=== PATIENT | female | born 1960 | race Caucasian/White ===

== ENCOUNTER → 2022-05-26 14:18 | Outpatient (CLI) | payer OTHER, SELFPAY | PROVIDERS: Visit Provider Nurse Practitioner Family | DX: R30.0 Dysuria (principal) | CPT/HCPCS: 87086; 87210 ==

== ENCOUNTER 2022-09-09 10:08 | Emergency (ER) | payer OTHER, SELFPAY ==
[2022-09-09 10:17] VITALS: BP 137/62; PULSE 77; RESP 15; TEMP 36.6; O2SAT 99; BMI 30.9
[2022-09-09 11:32] LABS: Add Manual Diff / Slide Review NO; Basophils Absolute Auto 100 /uL (0-100); Basophils Percent Auto 0.6 % (0-2); Eosinophils Absolute Auto 0 /uL (0-450); Eosinophils Percent Auto 0.2 % (2-4); Hemoglobin 14.4 g/dL (12.0-16.0); Lymphocytes Absolute Auto 1400 /uL (1100-4500); Lymphocytes Percent Auto 10.6 % (25-40); Mean Corpuscular HGB Conc 34.4 % (30-36); Mean Corpuscular Hemoglobin 31.1 PG (26-34); Mean Corpuscular Volume 90.5 fL (80-100); Monocytes Absolute Auto 600 /uL (0-900); Monocytes Percent Auto 4.5 % (3-14); Neutrophils Absolute Auto 10900 /uL (1500-7000); Neutrophils Percent Auto 84.1 % (50-75); Platelet Count 204 X10^3/uL (150-400); Red Blood Cell Count 4.64 X10^6/uL (4.0-5.2); Red Cell Distribution Width 13.1 % (11.6-14.8); White Blood Cell Count 12.9 X10^3/uL (4.5-11.0)
[2022-09-09 11:56] LABS: Alanine Aminotransferase 20 IU/L (<35); Albumin 4.4 g/dL (3.5-5.0); Albumin Globulin Ratio 1.4 (1.0-2.8); Alkaline Phosphatase 64 U/L (38-126); Aspartate Aminotransferase 23 IU/L (14-36); BUN Creatinine Ratio 14.2 (6-22); Blood Urea Nitrogen 17 mg/dL (7-17); Calcium 8.7 mg/dL (8.4-10.2); Carbon Dioxide 29 mmol/L (22-32); Chloride 100 mmol/L (98-107); Estimated Glomerular Filt Rate 51 mL/min (>60); Globulin 3.1 g/dL (1.7-4.1); Glucose 104 mg/dL (80-110); HEMOLYSIS 20 (0-50); Lipase 41 U/L (23-300); Potassium 3.9 mmol/L (3.4-5.1); Sodium 136 mmol/L (137-145); Total Protein 7.5 g/dL (6.3-8.2)
--- NOTE | 2022-09-09 12:42 | DI.CT.S_ITS ---
PROCEDURE: CT ABDOMEN PELVIS WO CON INDICATIONS: RLQ pain, bilateral CVA ttp TECHNIQUE: Noncontrast 5 mm thick sections acquired from the diaphragms to the symphysis. 5 mm coronal and sagittal reformats were then performed. For radiation dose reduction, the following was used: automated exposure control, adjustment of mA and/or kV according to patient size. COMPARISON: None. FINDINGS: Image quality: Excellent. ABDOMEN: Lung bases: Lung bases are clear. Heart size is normal. Solid organs: Liver is normal in size. Gallbladder contains sludge, without evidence of infection. . Pancreas is normal in contours. Spleen is normal in size. No adrenal nodules. No radiopaque nephrolithiasis. Perceived right-sided urothelial wall thickening and periureteral fat stranding. Left renal cyst with benign attenuation. Peritoneum and bowel: Unenhanced bowel loops demonstrate normal wall thickness and caliber. No free fluid or air. Appendix is unremarkable. Colonic diverticulosis without evidence of diverticulitis. Nodes and vessels: No retroperitoneal or mesenteric adenopathy by size criteria. Aorta and inferior vena cava are normal in caliber. Miscellaneous: No ventral hernias. PELVIS: Genitourinary: Bladder wall thickness is normal. Miscellaneous: No inguinal hernias or adenopathy. Bones: No suspicious bony lesions. No vertebral body compression fractures. IMPRESSION: No nephrolithiasis. Perceived right-sided urothelial wall thickening and periureteral fat stranding, which may indicate an ascending infection. Correlate with urinalysis. Dictated by: Washington Almaraz M.D. on 09/09/2022 at 13:28 Approved by: Washington Almaraz M.D. on 09/09/2022 at 13:37
--- NOTE | 2022-09-09 12:47 | ED_ITS ---
HPI - Abdominal Pain <Fany Barr PA-C - Last Filed: 09/09/22 17:31> General Chief Complaint: Abdominal Pain Stated Complaint: stomach issues x2 Time Seen by Provider: 09/09/22 12:02 Source: patient Mode of arrival: Ambulatory History of Present Illness HPI narrative: 61-year-old female with past medical history diabetes, diverticulosis presents to the ED with 3 days of right lower quadrant pain. Patient states that she has been constipated over the last 2 weeks with very small bowel movements that she has a lot of trouble pushing out. Patient states that this is a change since she usually 10s to have more diarrhea than constipation. Patient saw a small amount of blood in her urine just wants 2 days ago, but that has resolved since then. Patient endorses a lot of dysuria, belching, diminished appetite. Patient denies fever, chills, chest pain, shortness of breath, nausea, vomiting, lightheadedness, dizziness, syncope. Related Data Previous Rx's Medication Instructions Recorded fluconazole 150 mg tablet 150 mg PO Q3D 2 doses #2 tabs 05/28/22 cefpodoxime 200 mg tablet 200 mg PO BID 10 days #20 tabs 09/09/22 Allergies Allergy/AdvReac Type Severity Reaction Status Date / Time codeine Allergy Mild Nausea Verified 09/09/22 10:22 fentanyl Allergy Mild Vomiting Verified 09/09/22 10:22 IV Contrast dye Allergy Uncoded 09/09/22 12:56 Review of Systems <Fany Barr PA-C - Last Filed: 09/09/22 17:31> Review of Systems ROS Unobtainable: All systems reviewed & are unremarkable except as noted in HPI and below Constitutional Constitutional: Denies chills, Denies fatigue, Denies fever(s), Denies frequent falls, Denies lethargy and Denies weakness Eyes Eyes: Denies change in vision, Denies eye discharge, Denies irritation and Denies loss of vision ENT Ears, Nose, Mouth, and Throat: Denies change in voice, Denies dizziness, Denies neck pain, Denies sore throat and Denies throat swelling Cardiovascular Cardiovascular: Denies chest pain, Denies irregular heart rhythm, Denies lightheadedness, Denies palpitations, Denies dyspnea, Denies dyspnea on exertion and Denies orthopnea Respiratory Respiratory: Denies cough, Denies dyspnea, Denies dyspnea on exertion and Denies wheezing Gastrointestinal Gastrointestinal: Reports abdominal pain, Reports belching, Denies change in bowel habits, Reports constipation, Denies diarrhea, Denies nausea and Denies vomiting Genitourinary Genitourinary: Denies hematuria, Reports dysuria, Reports dysuria, Denies flank pain, Denies urinary incontinence and Denies urinary urgency Musculoskeletal Musculoskeletal: Denies back pain, Denies muscle weakness, Denies neck pain, Denies numbness and Denies tingling Integumentary/Breasts Skin/Breast: Denies pruritus, Denies erythema, Denies rash and Denies wounds Neurologic Neurologic: Denies behavioral changes, Denies confusion, Denies dizziness, Denies frequent falls, Denies loss of vision, Denies numbness, Denies tingling and Denies weakness Psychiatric Psychiatric: Denies anxiety, Denies behavioral changes, Denies confusion, Denies depression, Denies homicidal ideation and Denies suicidal ideation Endocrine Endocrine: Denies fatigue, Denies flushing and Denies palpitations Hematologic/Lymphatic Hematologic/Lymphatic: Denies easy bruising Allergic/Immunologic Allergic/Immunologic: Denies urticaria, Denies throat swelling and Denies wheezing Patient History <Fany Barr PA-C - Last Filed: 09/09/22 17:31> Social History Smoking Status: Never smoker Smoking Status: Never smoker alcohol intake frequency: holidays/special occasions only Substance Use Type: does not use Exam <Fany Barr PA-C - Last Filed: 09/09/22 17:31> Narrative Exam Narrative: Const General:?cooperative, healthy appearing and comfortable [facility] Head:?normal to inspection Ears:?hearing grossly normal bilaterally Nose:?external nose normal Face and sinus:?normal facial exam and sinuses nontender Mouth:?oral mucosae normal Throat:?posterior oropharynx normal Eyes General:?appearance normal, both eyes and all related structures Neck Neck:?normal visual inspection and no lymphadenopathy noted Resp Effort & Inspection:?normal respiratory effort Auscultation:?clear to auscultation bilaterally Cardio Rate:?regular rate Rhythm:?regular rhythm GI Abdomen is soft, nondistended. Abdomen is tender to palpation in the right lower quadrant. There is bilateral CVA tenderness. Neuro General:?patient alert, patient awake and patient oriented x3 Initial Vital Signs Initial Vital Signs: Vital Signs Temperature 97.8 F 09/09/22 10:17 Pulse Rate 77 09/09/22 10:17 Respiratory Rate 15 09/09/22 10:17 Blood Pressure 137/62 09/09/22 10:17 Pulse Oximetry 99 09/09/22 10:17 Oxygen Delivery Method Room Air 09/09/22 10:17 <Nick Villa MD - Last Filed: 09/16/22 08:09> Initial Vital Signs Initial Vital Signs: Vital Signs Temperature 97.8 F 09/09/22 10:17 Pulse Rate 77 09/09/22 10:17 Respiratory Rate 15 09/09/22 10:17 Blood Pressure 137/62 09/09/22 10:17 Pulse Oximetry 99 09/09/22 10:17 Oxygen Delivery Method Room Air 09/09/22 10:17 Course <Fany Barr PA-C - Last Filed: 09/09/22 17:31> Orders Ordered: Discontinued Medications Sodium Chloride (Normal Saline 0.9%) 1,000 mls @ 1,000 mls/hr IV BOLUS ONE Stop: 09/09/22 13:44 Last Infusion: 09/09/22 13:59 Dose: 0 mls/hr Documented By: Admin: 09/09/22 13:00 Dose: 1,000 mls/hr Documented By: EDD Ketorolac Tromethamine (Ketorolac 30 Mg/Ml Vial) 15 mg IV NOW ONE Stop: 09/09/22 12:46 Last Admin: 09/09/22 13:00 Dose: 15 mg Documented By: EDD Ondansetron HCl (Ondansetron 4 Mg/2 Ml Inj) 4 mg IV NOW ONE Stop: 09/09/22 12:46 Last Admin: 09/09/22 13:00 Dose: 4 mg Documented By: EDD Vital Signs Vital signs: Vital Signs - 8 hr 09/09/22 10:17 09/09/22 15:13 Temperature 97.8 F Pulse Rate 77 87 Respiratory Rate 15 18 Blood Pressure 137/62 151/66 H Pulse Oximetry 99 94 Oxygen Delivery Method Room Air Room Air <Nick Villa MD - Last Filed: 09/16/22 08:09> Orders Ordered: Discontinued Medications Sodium Chloride (Normal Saline 0.9%) 1,000 mls @ 1,000 mls/hr IV BOLUS ONE Stop: 09/09/22 13:44 Last Infusion: 09/09/22 13:59 Dose: 0 mls/hr Documented By: Admin: 09/09/22 13:00 Dose: 1,000 mls/hr Documented By: EDD Ketorolac Tromethamine (Ketorolac 30 Mg/Ml Vial) 15 mg IV NOW ONE Stop: 09/09/22 12:46 Last Admin: 09/09/22 13:00 Dose: 15 mg Documented By: EDD Ondansetron HCl (Ondansetron 4 Mg/2 Ml Inj) 4 mg IV NOW ONE Stop: 09/09/22 12:46 Last Admin: 09/09/22 13:00 Dose: 4 mg Documented By: EDD Vital Signs Vital signs: Vital Signs - 8 hr 09/09/22 10:17 09/09/22 15:13 Temperature 97.8 F Pulse Rate 77 87 Respiratory Rate 15 18 Blood Pressure 137/62 151/66 H Pulse Oximetry 99 94 Oxygen Delivery Method Room Air Room Air MDM - Abdominal Pain <Fany Barr PA-C - Last Filed: 09/09/22 17:31> Lab Data 09/09/22 11:22 09/09/22 11:22 Labs: Lab Results 09/09/22 09/09/22 09/09/22 Range/Units 11:22 11:22 14:43 WBC 12.9 H (4.5-11.0) X10^3/uL RBC 4.64 (4.0-5.2) X10^6/uL Hgb 14.4 (12.0-16.0) g/dL Hct 42.0 (36-46) % MCV 90.5 (80-100) fL MCH 31.1 (26-34) PG MCHC 34.4 (30-36) % RDW 13.1 (11.6-14.8) % Plt Count 204 (150-400) X10^3/uL Neut % (Auto) 84.1 H (50-75) % Lymph % (Auto) 10.6 L (25-40) % [place] % (Auto) 4.5 (3-14) % Eos % (Auto) 0.2 L (2-4) % Baso % (Auto) 0.6 (0-2) % Neut # (Auto) 14617 H (4801-1139) /uL Lymph # (Auto) 1400 (8936-8481) /uL [place] # (Auto) 600 (0-900) /uL Eos # (Auto) 0 (0-450) /uL Baso # (Auto) 100 (0-100) /uL Sodium 136 L (137-145) mmol/L Potassium 3.9 (3.4-5.1) mmol/L Chloride 100 (98-107) mmol/L Carbon Dioxide 29 (22-32) mmol/L BUN 17 (7-17) mg/dL Creatinine 1.20 H (0.52-1.04) mg/dL Estimated GFR 51 L (>60) mL/min BUN/Creatinine Ratio 14.2 (6-22) Glucose 104 (80-110) mg/dL Calcium 8.7 (8.4-10.2) mg/dL Total Bilirubin 1.0 (0.2-1.3) mg/dL AST 23 (14-36) IU/L ALT 20 (<35) IU/L Alkaline Phosphatase 64 (38-126) U/L Total Protein 7.5 (6.3-8.2) g/dL Albumin 4.4 (3.5-5.0) g/dL Globulin 3.1 (1.7-4.1) g/dL Albumin/Globulin Ratio 1.4 (1.0-2.8) Lipase 41 (23-300) U/L Urine Color Yellow Urine Appearance Sl cloudy Urine pH 6.0 (4.5-8.0) Ur Specific [place] 1.015 (1.000-1.035) Urine Protein Trace H (Negative) Urine Glucose (UA) Negative (Negative) g/dL Urine Ketones Trace H (NEGATIVE) Urine Occult Blood 3+ H (Negative) Urine Nitrate Negative (Negative) Urine Bilirubin Negative (NEGATIVE) Urine Urobilinogen 0.2 (0.2) E.U./dL Ur Leukocyte Esterase 3+ H (NEGATIVE) Urine RBC 5-10/hpf H (0-5/HPF) Urine WBC 10-30/hpf H (0-5/HPF) Ur Squamous Epith Cells 1-5 /hpf (0-5/HPF) Amorphous Sediment 1+ Urine Bacteria Moderate (10-30) H (None) Urine Mucus 1+ H (Negative) Ur Culture Indicated? Specimen cultured Point of care testing: Urine Dip Bedside Urine Glucose Negative Bedside Urine Bilirubin - Negative Bedside Urine Ketone +/- 5 Urine Specific [place] 1.015 Bedside Urine Occult Blood +++ Bedside Urine pH 6.0 Bedside Urine Protein + 30 Bedside Urine Urobilinogen - Negative Bedside Urine Nitrite - Negative Bedside Urine Leukocytes ++ 125 Esterase MDM Narrative Medical decision making narrative: 61-year-old female with past medical history diabetes, diverticulosis presents to the ED with 3 days of right lower quadrant pain. Concern for appendicitis versus nephrolithiasis versus UTI versus pyelonephritis versus constipation versus diverticulitis versus other intra-abdominal pathology versus other. Will obtain labs, UA, CT abdomen pelvis. Patient endorses a contrast allergy from a prior CT where she broke out in a rash. Will trial CT abdomen pelvis without contrast to start with. Will give IV fluids, Zofran, Toradol for symptoms. Will reassess. UA and CT abdomen pelvis consistent with a ascending UTI. No other acute findings on workup. There is some stool burden in the CT, for which patient is recommended to take MiraLax daily for the next few weeks. Patient prescribed antibiotics for the UTI. Patient agrees to follow-up with PCP as soon as possible. ED return precautions were discussed with patient. Patient verbal ized understanding. Medical records reviewed: Yes <Nick Villa MD - Last Filed: 09/16/22 08:09> Lab Data Labs: Lab Results 09/09/22 09/09/22 09/09/22 Range/Units 11:22 11:22 14:43 WBC 12.9 H (4.5-11.0) X10^3/uL RBC 4.64 (4.0-5.2) X10^6/uL Hgb 14.4 (12.0-16.0) g/dL Hct 42.0 (36-46) % MCV 90.5 (80-100) fL MCH 31.1 (26-34) PG MCHC 34.4 (30-36) % RDW 13.1 (11.6-14.8) % Plt Count 204 (150-400) X10^3/uL Neut % (Auto) 84.1 H (50-75) % Lymph % (Auto) 10.6 L (25-40) % [place] % (Auto) 4.5 (3-14) % Eos % (Auto) 0.2 L (2-4) % Baso % (Auto) 0.6 (0-2) % Neut # (Auto) 64890 H (5423-8134) /uL Lymph # (Auto) 1400 (0461-8805) /uL [place] # (Auto) 600 (0-900) /uL Eos # (Auto) 0 (0-450) /uL Baso # (Auto) 100 (0-100) /uL Sodium 136 L (137-145) mmol/L Potassium 3.9 (3.4-5.1) mmol/L Chloride 100 (98-107) mmol/L Carbon Dioxide 29 (22-32) mmol/L BUN 17 (7-17) mg/dL Creatinine 1.20 H (0.52-1.04) mg/dL Estimated GFR 51 L (>60) mL/min BUN/Creatinine Ratio 14.2 (6-22) Glucose 104 (80-110) mg/dL Calcium 8.7 (8.4-10.2) mg/dL Total Bilirubin 1.0 (0.2-1.3) mg/dL AST 23 (14-36) IU/L ALT 20 (<35) IU/L Alkaline Phosphatase 64 (38-126) U/L Total Protein 7.5 (6.3-8.2) g/dL Albumin 4.4 (3.5-5.0) g/dL Globulin 3.1 (1.7-4.1) g/dL Albumin/Globulin Ratio 1.4 (1.0-2.8) Lipase 41 (23-300) U/L Urine Color Yellow Urine Appearance Sl cloudy Urine pH 6.0 (4.5-8.0) Ur Specific [place] 1.015 (1.000-1.035) Urine Protein Trace H (Negative) Urine Glucose (UA) Negative (Negative) g/dL Urine Ketones Trace H (NEGATIVE) Urine Occult Blood 3+ H (Negative) Urine Nitrate Negative (Negative) Urine Bilirubin Negative (NEGATIVE) Urine Urobilinogen 0.2 (0.2) E.U./dL Ur Leukocyte Esterase 3+ H (NEGATIVE) Urine RBC 5-10/hpf H (0-5/HPF) Urine WBC 10-30/hpf H (0-5/HPF) Ur Squamous Epith Cells 1-5 /hpf (0-5/HPF) Amorphous Sediment 1+ Urine Bacteria Moderate (10-30) H (None) Urine Mucus 1+ H (Negative) Ur Culture Indicated? Specimen cultured Point of care testing: Urine Dip Bedside Urine Glucose Negative Bedside Urine Bilirubin - Negative Bedside Urine Ketone +/- 5 Urine Specific [place] 1.015 Bedside Urine Occult Blood +++ Bedside Urine pH 6.0 Bedside Urine Protein + 30 Bedside Urine Urobilinogen - Negative Bedside Urine Nitrite - Negative Bedside Urine Leukocytes ++ 125 Esterase Discharge Plan Departure Patient Disposition: Home Clinical Impression: UTI (urinary tract infection) Instructions: DI for Urinary Tract Infection (UTI) Activity Restrictions/Additional Instructions: You were evaluated in the ED today for right-sided abdominal pain. Your urine and CT scan show a urinary tract infection for which you are being prescribed antibiotics. Please complete the full course of antibiotics. It also appears that you have some constipation, for which you can take [id number] magnesium citrate 300 mg once. After that, you may take MiraLax nightly for a good bowel regimen. Please follow-up with your PCP in 3-5 days. Return to the ED if you have fever, chills, persistent vomiting, chest pain, shortness of breath. Prescriptions: New cefpodoxime 200 mg tablet 200 mg PO BID 10 Days Qty: 20 0RF Rx Instructions: must administer with a meal/food No Action fluconazole 150 mg tablet 150 mg PO Q3D 0 Days Qty: 2 0RF Rx Instructions: One tablet today, next tablet in 3 days Referrals: Miscellaneous,[facility] [Primary Care Provider] - Stand Alone Forms: Patient Portal/API <Nick Villa MD - Last Filed: 09/16/22 08:09> Cosign ED Attending Jazzature Attestation: I was immediately available in the department for consultation. ?This documentation has been reviewed and I agree with assessment and plan. Supervised by Nick Villa MD
[2022-09-09] MEDS: ONDANSETRON 4 MG/2 ML INJ IV (13:00)
[2022-09-09] MEDS: SODIUM CHLORIDE 0.9% 1,000 ML 1000 ML IV (13:00)
[2022-09-09] MEDS: KETOROLAC 30 MG/ML VIAL 15 MG IV (13:00)
[2022-09-09 14:46] LABS: Appearance Urine UA SL CLOUDY; Bilirubin Urine UA NEGATIVE (NEGATIVE); Color Urine UA YELLOW; Glucose Urine UA NEGATIVE (Negative); Ketones Urine UA TRACE (NEGATIVE); Leukocyte Esterase Urine UA 3+ (NEGATIVE); Nitrite Urine UA NEGATIVE (Negative); Occult Blood Urine UA 3+ (Negative); Protein Urine UA TRACE (Negative); Specific Gravity Urine UA 1.015 (1.000-1.035); Urobilinogen Urine UA 0.2 E.U./dL (0.2)
[2022-09-09 14:51] LABS: Amorphous Sediment Urine 1+; Bacteria Urine Moderate (10-30); Culture Indicated Urine Specimen Cultured; Mucus Urine 1+ (Negative); RBC Urine 5-10/HPF (0-5/HPF); Squamous Epithelial Cell Urine 1-5 /HPF (0-5/HPF); WBC Urine 10-30/HPF (0-5/HPF)
[2022-09-09 15:13] VITALS: BP 151/66; PULSE 87; RESP 18; O2SAT 94
== END 2022-09-09 15:14 | disposition home or self-care (01) ==
PROVIDERS: Emergency Medicine; Emergency Provider Student in an Organized Health Care Education/Training Program
DX: N39.0 Urinary tract infection, site not specified (principal); R10.31 Right lower quadrant pain
CPT/HCPCS: 36415; 74176; 80053; 81001; 81003; 83690; 85025; 93005; 96361; 96374; 96375; 99283; 99284; J1885; J2405